=== PATIENT | male | born 1950 | race Caucasian/White ===

== ENCOUNTER 2021-11-04 10:34 | Emergency (ER) | payer OTHER, SELFPAY ==
--- NOTE | ~2021-11-04 | XR_ITS ---
EXAMINATION: XR hip RT min 2V DATE: 11/04/2021 10:54 INDICATION: Nontraumatic right hip pain TECHNIQUE: Anteroposterior view of the pelvis and anteroposterior, frog leg and cross-table lateral v iews of the right hip were obtained. COMPARISON: None. FINDINGS: Alignment is normal. No fracture or suggest avascular necrosis. There is decreased femoral head neck offset which can predispose towards cam-type femoral acetabular impingement. Right hip joint and sacr oiliac joint spaces appear normal. Mild osteoarthritis with mild nonuniform joint space narrowing at the left sacroiliac joint. Soft tissues are unremarkable. IMPRESSION: 1. No acute osseous abnormality or evident osteoarthritis at the right hip. Reviewed, dictated and finalized at location . 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
[2021-11-04 10:34] VITALS: BP 172/66; PULSE 71; RESP 18; TEMP 37.1; O2SAT 95
--- NOTE | 2021-11-04 12:33 | PC.NURSE ---
Patient walked without difficulty around room, EDP notified.
--- NOTE | 2021-11-04 13:17 | ED.GENADULT ---
HPI - General Adult General Chief complaint: Extremity Injury, Lower Stated complaint: hip pain Time Seen by Provider: 11/04/21 10:46 Source: patient Mode of arrival: EMS Limitations: no limitations History of Present Illness HPI narrative: Patient is a 71-year-old male with chief complaint of lateral aspect of right hip that began prior to arrival while mopping. Patient reports the pain was very intense so 911 was called. Patient was given 4 mg of morphine via EMS and states the pain has now subsided. Patient is able to move the extremity. Patient denies any falls or direct injuries. Patient denies prior surgeries to the hip. Patient denies any chest pain, shortness of breath, fever, chills or any other symptoms. Related Data Allergies Allergy/AdvReac Type Severity Reaction Status Date / Time codeine AdvReac Muscle Pain Verified 11/04/21 10:42 Review of Systems Review of Systems: CONSTITUTIONAL: Denies fever, chills, or sweats. EYES: Denies visual changes, redness, or discharge. ENT: Denies rhinorrhea, congestion, sore throat, or otalgia. CARDIOVASCULAR: Denies chest pain, palpitations, or edema. RESPIRATORY: Denies cough or dyspnea. GASTROINTESTINAL: Denies abdominal pain, nausea, vomiting, or diarrhea. GENITOURINARY: Denies dysuria or hematuria. SKIN: Denies rash or itching. MUSCULOSKELETAL: Reports right hip pain denies back pain, joint pain, or myalgia. NEUROLOGIC: Denies headache, numbness, dizziness, or weakness. PSYCHIATRIC: Denies anxiety or depression. Exam Narrative: GENERAL: Well-appearing, well-nourished, and in no acute distress. HEAD: Normocephalic, atraumatic. EYES: PERRLA and EOMI. NECK: Supple. No adenopathy or masses. CHEST: Clear to auscultation. No respiratory distress. No wheezes rales or rhonchi HEART: Regular rate and rhythm. EXTREMITIES: Tightness to right IT band. Patient able to move extremity. No calf pain, tenderness or swelling. No groin pain.No edema. SKIN: Warm, dry, no rash. NEURO: No focal deficits. Alert and oriented x3. PSYCH: Normal mood and affect. Course Vital Signs Vital signs: Vital Signs Temperature 98.7 F 11/04/21 10:34 Pulse Rate 71 11/04/21 10:34 Respiratory Rate 18 11/04/21 10:34 Blood Pressure 172/66 H 11/04/21 10:34 Pulse Oximetry 95 11/04/21 10:34 Temperature 98.7 F 11/04/21 10:34 Pulse Rate 71 11/04/21 10:34 Respiratory Rate 18 11/04/21 10:34 Blood Pressure 172/66 H 11/04/21 10:34 Pulse Oximetry 95 11/04/21 10:34 Medical Decision Making MDM Narrative Medical decision making narrative: No fractures noted. Patient able to ambulate. Patient reports discomfort has resolved. Patient instructed to follow-up primary care for reevaluation. Patient strict return to emergency department if he has any emergent symptoms. Differential Diagnosis Differential Diagnosis: Fracture, sprain, strain, spasm Vital Signs Vital Signs: Vital Signs Temperature 98.7 F 11/04/21 10:34 Pulse Rate 71 11/04/21 10:34 Respiratory Rate 18 11/04/21 10:34 Blood Pressure 172/66 H 11/04/21 10:34 Pulse Oximetry 95 11/04/21 10:34 Temperature 98.7 F 11/04/21 10:34 Pulse Rate 71 11/04/21 10:34 Respiratory Rate 18 11/04/21 10:34 Blood Pressure 172/66 H 11/04/21 10:34 Pulse Oximetry 95 11/04/21 10:34 Imaging Data Radiologist's impression: ITS Impressions Hip X-Ray 11/04/21 11:00 IMPRESSION: 1. No acute osseous abnormality or evident osteoarthritis at the right hip. Discharge Plan Discharge Clinical Impression: Acute pain of right hip Patient Disposition: Home, Self-Care Condition: Improved Instructions: Antibiotic Form Additional Instructions: Follow-up with your primary care provider. Return to emergency department if you have any emergent symptoms. Follow-up/Referrals: Brando Osborn MD [Primary Care Provider] - Time of Disposition: 13:22
[2021-11-04 13:32] VITALS: BP 155/78; PULSE 68; RESP 17; O2SAT 100
== END 2021-11-04 13:33 | disposition home or self-care (01) ==
PROVIDERS: Emergency Provider Emergency Medicine; PCP Family Medicine Adolescent Medicine
DX: M25.551 Pain in right hip (principal)
CPT/HCPCS: 73502; 99283

== ENCOUNTER 2021-12-04 09:52 | Emergency (ER) | payer OTHER, SELFPAY ==
--- NOTE | ~2021-12-04 | XR_ITS ---
EXAMINATION: XR chest 2V DATE: 12/04/2021 10:30 INDICATION: Cough. Decreased breath sounds. TECHNIQUE: Frontal and lateral views of the chest were obtained on 3 radiographs. COMPARISON: None. FINDINGS: The chest demonstrates clear lungs without pneumonia, pleural effusion, or pneumothorax. Th e heart size is normal. There is mild chronic anterior wedging of 2 midthoracic vertebral bodies. IMPRESSION: 1. No acute cardiopulmonary disease. Reviewed, dictated and finalized at location A. R HELPER
--- NOTE | 2021-12-04 10:02 | ED.URI ---
HPI - URI/Sore Throat General Chief Complaint: Upper Respiratory Infection Stated Complaint: cough/fever/congestion Time Seen by Provider: 12/04/21 10:12 Source: patient and RN notes reviewed Mode of arrival: ambulatory Limitations: no limitations History of Present Illness HPI Narrative: 71-year-old male presents with concern for cough, runny nose, nasal congestion, sore throat that started 4 days ago. He is concerned for Covid. He denies taking any tkwu-zwg-lddwngy medication. He denies shortness of breath, body aches, chills, fever, sweats. He reports history of high blood pressure, did not take his blood pressure medication. MD elicited complaint: cough and sore throat Related Data Home Medications Medication Instructions Recorded Confirmed amlodipine 5 mg tablet 5 mg PO DAILY 11/19/21 12/04/21 aspirin 81 mg tablet,delayed 81 mg PO DAILY 11/19/21 12/04/21 release fenofibrate 160 mg tablet 160 mg PO DAILY 11/19/21 12/04/21 lisinopril 40 mg tablet 40 mg PO DAILY 11/19/21 12/04/21 lorazepam 1 mg tablet 1 mg PO BID PRN 11/19/21 12/04/21 melatonin 10 mg tablet 10 mg PO QHS 11/19/21 12/04/21 metoprolol tartrate 100 mg tablet 100 mg PO BID 11/19/21 12/04/21 naproxen sodium 220 mg capsule 220 mg PO BID 11/19/21 12/04/21 omeprazole 20 mg capsule,delayed 20 mg PO DAILY 11/19/21 12/04/21 release Allergies Allergy/AdvReac Type Severity Reaction Status Date / Time codeine AdvReac Muscle Pain Verified 12/04/21 10:03 Review of Systems Review of Systems: CONSTITUTIONAL: Denies malaise, chills, sweats, or fever. EYES: Denies visual changes, redness, or discharge. ENT: Reports rhinorrhea, congestion, and sore throat. Reports sinus pain, otalgia CARDIOVASCULAR: Denies chest pain, palpitations, or edema. RESPIRATORY: Reports cough. Denies dyspnea. GASTROINTESTINAL: Denies abdominal pain, nausea, vomiting, diarrhea SKIN: Denies rash or itching. MUSCULOSKELETAL: Denies myalgia. NEUROLOGIC: Denies headache. All systems reviewed & are unremarkable except as noted in HPI and below PMFSH Past Medical History Medical History (Updated 12/04/21 @ 10:36 by Candace Wyatt NP) Erectile dysfunction GERD (gastroesophageal reflux disease) Hypertension Obesity (BMI 30-39.9) Prediabetes Pure hyperglyceridemia Comments At time of signature, agree with nursing past medical, surgical, social and family history. There is no relevant family history pertinent to the presenting complaint Exam Narrative: GENERAL: Well-appearing, well-nourished, and in no acute distress. HEAD: Normocephalic EYES: PERRLA, conjunctivae clear ENT: Nares clear, clear discharge. Mucous membranes moist. TM pearly hurt with dull light reflex bilaterally; no tragal tenderness. Oropharynx erythematous without lesions. Tonsils not enlarged and without exudate, no drooling, no hoarseness, no trismus, uvula midline. NECK: Supple. No lymphadenopathy CHEST: Breath sounds diminished throughout. No wheezing, rhonchi, rales, or stridor. No respiratory distress, speaks in full sentences. HEART: Regular rate and rhythm. No murmur heard. SKIN: Warm, dry, no rash. NEURO: Alert and oriented x3. PSYCH: Normal mood and affect Course Course Emergency Course: Patient is aware of diagnosis, understands and agrees to treatment plan. Anticipatory guidance given. Patient agrees to follow-up as directed and is aware of reasons to seek care at the emergency department. Portions of this record may have been created with voice recognition software Level of Care: Express Care Visit Vital Signs Vital signs: Reviewed. Patient has history of hypertension MDM - URI/Sore Throat MDM Narrative Medical decision making narrative: Differential diagnosis considered: Farah virus, strep pharyngitis, allergic rhinitis, upper respiratory tract infection, sinusitis, rhinosinusitis, nasopharyngitis. viral pharyngitis, otitis media, otitis externa, pneumonia, bronchitis, viral cough syndrome, viral syn
[2021-12-04 10:04] VITALS: BP 193/60; PULSE 77; RESP 18; TEMP 36.7; O2SAT 96
[2021-12-04 10:28] VITALS: BP 193/60; PULSE 77; RESP 18; TEMP 36.7; O2SAT 96
== END 2021-12-04 10:40 | disposition home or self-care (01) ==
PROVIDERS: Emergency Provider Nurse Practitioner
DX: U07.1 COVID-19 (principal); K21.9 Gastro-esophageal reflux disease without esophagitis; I10 Essential (primary) hypertension; R73.03 Prediabetes; E78.1 Pure hyperglyceridemia; E66.9 Obesity, unspecified; Z68.34 Body mass index [BMI] 34.0-34.9, adult
CPT/HCPCS: 71046; 87426; 99213; C9803; G0463

== ENCOUNTER 2022-09-30 08:52 | Outpatient (CLI) | payer OTHER, SELFPAY ==
--- NOTE | ~2022-09-30 | US_ITS ---
EXAMINATION: US aorta [facility] scrn DATE: 09/30/2022 10:01 INSULATION HOSEMAN INDICATION: Family history of ischemic heart disease TECHNIQUE: Grayscale, color Doppler, and pulsed Doppler images of the aorta and common iliac arteries were obtained. COMPARISON: None. FINDINGS: The proximal aorta measures 1.7 cm greatest sagittal dimension. The mid aorta measures 1.7 cm greates t sagittal dimension. The distal aorta measures 2.1 cm greatest sagittal dimension. The right common internal iliac artery measures 12 mm. The left common iliac artery measures 9 mm. IMPRESSION: 1. Normal caliber aorta without aneurysm. Reviewed, dictated and finalized at location B. LATION HOSEMAN
== END 2022-09-30 08:53 | disposition home or self-care (01) ==
PROVIDERS: PCP Family Medicine Adolescent Medicine; Visit Provider Physician Assistant
DX: Z13.6 Encounter for screening for cardiovascular disorders (principal); Z82.49 Family history of ischemic heart disease and other diseases of the circulatory system
CPT/HCPCS: 76706

== ENCOUNTER 2025-09-30 08:33 | Emergency (ER) | payer OTHER, SELFPAY ==
--- OUTSIDE RECORDS SUMMARY | 2025-09-30 08:39 | XMS_ITS | Clinical Summary ---
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 Gender Identity Not on file Sexual Orientation Not on file Plan of Treatment Health Maintenance Due Date Last Done Comments Hepatitis C Virus (HCV) Screening 1950 TdaP Immunization 1950 Cologuard 1996 Colonoscopy 1996 Colorectal Cancer Screening 1996 Immunochemical Fecal Occult Blood 1996 Pneumococcal Immunization (5 0+ years) (1 of 1 - PCV) 2001 Zoster Immunization (1 of 2) 2001 Influenza Immunization (#1) 2025 08/17/2020 SARS-COV-2 Immunization (3 - season) 2025 01/27/2021, 01/04/2021 Respiratory Syncytial Virus (RSV) Immunization (Adult) (1 - 1-dose 75+ series) 2026 Hepatitis B Immunization Aged Out No longer eligible based on patient's age to complete this topic Human Papillomavirus (HPV) Immunization Aged Out No longer eligible b ased on patient's age to complete this topic Meningococcal Immunization (ACWY) Aged Out No longer eligible b ased on patient's age to complete this topic Rotavirus Immunization Aged Out No lo nger eligible based on patient's age to complete this topic
[2025-09-30 08:50] VITALS: BP 166/50; PULSE 57; RESP 18; TEMP 36.5; O2SAT 97
--- NOTE | 2025-09-30 09:10 | ED.ABDPAIN ---
HPI - Abdominal Pain General Chief Complaint: Abdominal Pain Stated Complaint: stomach pain patient presents the [facility] Care with complaints of left lower abdominal pain that has been constant for the last several days and does have intermittent increase in pain. denies any alleviating or aggravating symptoms. Medication or remedies attempted for symptoms. Denies any history of abdominal problems, no history of colonoscopy. Noted he has had normal bowel movements. Denies fever, chills, body aches, headache, Urinary symptoms, testicular pain, testicular swelling, flank pain, back pain, blood in urine, blood in stool, or dizziness. Related Data Home Medications ?Medication ?Instructions ?Recorded ?Confirmed ?Last Taken ?Type aspirin 81 mg tablet,delayed 81 mg PO DAILY 11/19/21 09/19/25 Unknown History release (Adult Low Dose Aspirin) omeprazole 20 mg capsule,delayed 20 mg PO DAILY 11/19/21 09/19/25 Unknown History release Allergies Allergy/AdvReac Type Severity Reaction Status Date / Time codeine AdvReac Muscle Pain Verified 09/30/25 08:54 Review of Systems Constitutional: Constitutional: Reports as per HPI, Denies chills, Denies fatigue, Denies fever(s) and Denies weakness Eyes: Eyes: Reports no additional eye complaints Cardiovascular: Cardiovascular: Reports no additional cardiovascular complaints Respiratory: Respiratory: Reports no additional respiratory complaints Gastrointestinal: Gastrointestinal: Reports as per HPI, Reports abdominal pain, Denies bloating, Denies constipation, Denies heartburn, Denies diarrhea, Denies nausea and Denies vomiting Genitourinary: Genitourinary: Reports as per HPI, Denies oliguria, Denies dysuria, Denies testicular pain, Denies urinary frequency and Denies urinary incontinence Musculoskeletal: Musculoskeletal: Reports as per HPI, Denies back pain and Denies myalgias Integumentary/Breasts: Skin/Breast: Reports as per HPI, Denies erythema and Denies rash Neurologic: Reports as per HPI, Denies vertigo, Denies dizziness, Denies syncope, Denies headache(s) and Denies weakness Psychiatric: Psychiatric: Reports no additional psychiatric complaints Endocrine: Endocrine: Reports no additional endocrine complaints Hematologic/Lymphatic: Hematologic/Lymphatic: Reports no additional hematologic/lymphatic complaints Allergic/Immunologic: Allergic/Immunologic: Reports no additional allergic/immunologic complaints PMFSH Past Medical History Medical History Anxiety COVID-19 Obesity (BMI 30-39.9) Prediabetes GERD (gastroesophageal reflux disease) Erectile dysfunction Surgical History Surgical History History of tonsillectomy and adenoidectomy Family History Family History Father Aortic aneurysm Malignant neoplasm of prostate Hypertension Mother Sibling No problems noted. Social History Social History Smoking status: Former smoker Second hand tobacco smoke exposure: No Alcohol intake: current Alcohol use details: 1 beer per day Substance use: never Substance use type: does not use Do You Feel Safe in your Home?: Yes Lack of Transportation: No Lack of Food: Never True Current Housing: I Have Housing Concerned About Future Housing: No Difficulty Paying Gas/Electric Bills: No Difficulty Paying for Meds: No Currently Unemployed: No Education: High School Diploma/GED Living arrangements: with family Occupation/Education: occupation Additional occupation/education comments: [id number] Gender identity (if verbalized by the patient): Male Exam Const: General: healthy appearing and no acute distress Nutritional Appearance: well nourished Orientation/consciousness: patient oriented x3 Limitations: no limitations Resp: Effort & Inspection: normal respiratory effort Auscultation: clear to auscultation bilaterally Cardio: Rate: regular rate Rhythm: regular rhythm GI: Inspection: non-distended GI Palp: Yes Soft to palpation, Yes Tenderness to palpation present (GI) ( suprapubic, left lower quadrant, periumbilical), Yes Guarding due to palpation present (GI), No Rigid due to palpation, Yes Hernia present ventral, No Palpable mass present and No Rebound tenderness present Auscultation: normal bowel sounds : General: Yes bladder normal to palpation and Yes no CVA tenderness Back/Spine/Pelvis: Back: no CVA tenderness Skin: General skin exam: normal color Rashes: no rashes Wounds: no wounds Neuro: General: patient oriented x3 Speech: normal speech Gait exam (Neuro): Normal gait present Psych: Mental Status: mental status grossly normal Affect: normal affect Attitude: cooperative Course Course Level of Care: Express Care Visit Vital Signs Vital signs: Vital Signs Temperature 97.7 F 09/30/25 08:50 Pulse Rate 57 L 09/30/25 08:50 Respiratory Rate 18 09/30/25 08:50 Blood Pressure 166/50 H 09/30/25 08:50 Pulse Oximetry 97 09/30/25 08:50 Oxygen Delivery Room Air 09/30/25 08:50 Temperature 97.7 F 09/30/25 08:50 Pulse Rate 57 L 09/30/25 08:50 Respiratory Rate 18 09/30/25 08:50 Blood Pressure 166/50 H 09/30/25 08:50 Pulse Oximetry 97 09/30/25 08:50 Oxygen Delivery Room Air 09/30/25 08:50 Transfer Transfered to: [facility] Transportation: Other (Private vehicle) Transfer rationale: abdominal pain concern for diverticulosis /diverticulitis. Also noted positive Cologuard 3 years ago with no follow-up colonoscopy Accepting physician: Dr Lizama Transfer comments: report called to physician in emergency room. MDM - Abdominal Pain MDM Narrative Medical decision making narrative: Given patient's overall symptoms and concern for potential diverticulitis versus abscess versus colon mass patient should be evaluated in the emergency room with CT scan and lab work report called to [facility] given to provider patient to be transferred by private vehicle Differential Diagnosis Differential diagnosis: Likely abdominal pain, constipation, diverticulitis, small bowel obstruction and other ( abdominal mass) Medical Records Attestation: I reviewed the patient's medical records. Discharge Plan Discharge Clinical Impression: Abdominal pain Patient Disposition: Acute Care Hospital Condition: Guarded Prognosis Patient Language: Icelandic Prescriptions: No Action aspirin [Adult Low Dose Aspirin] 81 mg tablet,delayed release (DR/EC) 81 mg PO DAILY omeprazole 20 mg capsule,delayed release(DR/EC) 20 mg PO DAILY amlodipine 5 mg tablet 5 mg PO DAILY Qty: 90 3RF atorvastatin 10 mg tablet 10 mg PO DAILY Qty: 90 3RF lorazepam 1 mg tablet 1 mg PO BID PRN (Reason: Anxiety) Qty: 60 5RF metoprolol tartrate 100 mg tablet 100 mg PO BID Qty: 180 3RF lisinopril 40 mg tablet 40 mg PO DAILY Qty: 90 2RF fenofibrate 160 mg tablet 160 mg PO DAILY Qty: 90 3RF Follow-up/Referrals: Brando Osborn MD [Primary Care Provider, Family Practice] Time of Disposition: 09:18
== END 2025-09-30 09:13 | disposition short-term general hospital (02) ==
PROVIDERS: Emergency Provider Nurse Practitioner Family; PCP Family Medicine Adolescent Medicine
DX: R10.30 Lower abdominal pain, unspecified (principal); R10.32 Left lower quadrant pain; R10.33 Periumbilical pain; Z87.891 Personal history of nicotine dependence; K21.9 Gastro-esophageal reflux disease without esophagitis; R73.03 Prediabetes; E66.9 Obesity, unspecified; Z68.34 Body mass index [BMI] 34.0-34.9, adult; F41.9 Anxiety disorder, unspecified; Z86.16 Personal history of COVID-19; Z79.82 Long term (current) use of aspirin
CPT/HCPCS: 99212; G0463

== ENCOUNTER 2025-09-30 09:32 | Emergency (ER) | payer OTHER, SELFPAY ==
--- NOTE | ~2025-09-30 | CT_ITS ---
CT abdomen pelvis w con Clinical History: LLQ pain . Comparison: None Technique: Axial images lung bases to symphysis pubis IV contrast information not listed in PACS Coronal, sagittal reformats CT images acquired with automatic exposure control for dose reduction DLP: 902 mGy-cm Findings: Lung bases: Clear. Visualized heart and pericardium: Unremarkable. Liver: Enlarged. Steatosis. Probable cirrhosis. Gallbladder: Unremarkable. Spleen: Unremarkable. Pancreas: Unremarkable. Adrenal glands: Unremarkable. Kidneys: Right kidney- No hydronephrosis. No renal stones. Left kidney- No hydronephrosis. No renal stones. Distal esophagus/stomach: Unremarkable. Small bowel loops: Normal caliber and wall thickness. Colon: Diverticula. Perisigmoid focal fatty inflammation, no abscess or free air. Smaller additional focus. Normal caliber and wall thickness. Normal RLQ appendix. Nodes: No enlarged nodes. Peritoneum: No ascites. No free air. Urinary bladder: Unremarkable. Prostate: Unremarkable. Bones: No acute bony abnormality. Soft tissues: Unremarkable. Aorta: No aneurysm or dissection. Atherosclerotic disease. IVC: Unremarkable. Main portal vein/SMV/splenic vein: Patent. IMPRESSION: 1. Appearance suggests left lower quadrant epiploic appendagitis. Diverticulitis considered less likely. 2. Additional findings as above. Reviewed, dictated and finalized at location R. [facility] [employer]NAGER IMPRESSION: 1. Appearance suggests left lower quadrant epiploic appendagitis. Diverticulit is considered less likely. 2. Additional findings as above.
--- OUTSIDE RECORDS SUMMARY | 2025-09-30 09:35 | XMS_ITS | Clinical Summary ---
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
[2025-09-30 09:38] VITALS: PULSE 63; RESP 14; TEMP 36.6; O2SAT 97
[2025-09-30 09:58] LABS: Add Urine Microscopic? NO; Appearance Urine Clear (Clear); Glucose Urine UA Negative (Negative); Hematocrit 46.0 % (42.0-52.0); Hemoglobin 14.2 g/dL (14.0-18.0); Immature Granulocyte Percent A 0.4 % (0-0.5); Leukocyte Esterase Ur Negative LEU/UL (Negative); Lymphocytes Absolute Auto 3.38 K/mm3 (0.9-3.2); Mean Corpuscular HGB Conc 30.9 g/dl (32-36); Mean Corpuscular Hemoglobin 28.3 pg (26-34); Mean Corpuscular Volume 91.6 fl (80-100); Nitrate Urine Negative (Negative); Nucleated Red Blood Cells Absolute Auto 0.000 K/mm3 (0.0-0.012); Nucleated Red Blood Cells Perc 0.0 % (0.0-0.2); Platelet Count Result 269 k/mm3 (150-375); Red Blood Count 5.02 M/mm3 (4.6-6.20); Specific Grav Ur 1.020 (1.001-1.035); White Blood Count 11.3 K/mm3 (4.5-10.0)
[2025-09-30 10:18] LABS: Alanine Aminotransferase 24 U/L (6-50); Albumin Level 4.2 g/dL (3.5-5.1); Alkaline Phosphatase 65 U/L (38-126); Anion Gap 8 mmol/L (4-12); Aspartate Amino Transferase 28 U/L (17-59); Bilirubin,Total 0.8 mg/dL (0.2-1.3); Blood Urea Nitrogen 23 mg/dL (9-20); Calcium 9.3 mg/dL (8.4-10.2); Carbon Dioxide 29 mmol/L (22-30); Chloride 102 mmol/L (98-107); Estimated CRCL calculation 46 ml/min; Estimated Glomerular Filt Rate 47; Glucose 98 mg/dL (65-110); Lipase 95 U/L (23-300); Potassium 4.0 mmol/L (3.4-5.0); Sodium 139 mmol/L (137-145); Total Protein 7.3 g/dL (6.3-8.2)
--- NOTE | 2025-09-30 11:34 | ED.ABDPAIN ---
HPI - Abdominal Pain General Chief Complaint: Abdominal Pain Stated Complaint: abd pain Time Seen by Provider: 09/30/25 09:46 History of Present Illness HPI narrative: Patient is a 74-year-old male who presents ER with abdominal pain. Worsening over last 3 days. Left lower quadrant. No radiation. Worse with physical movements. He has not taken any pain medication. No diarrhea or constipation. History of positive Cologuard in 2021 but has not had any colonoscopy or further evaluation. No weight loss. No other complaints. Related Data Home Medications ?Medication ?Instructions ?Recorded ?Confirmed ?Last Taken ?Type aspirin 81 mg tablet,delayed 81 mg PO DAILY 11/19/21 09/19/25 Unknown History release (Adult Low Dose Aspirin) omeprazole 20 mg capsule,delayed 20 mg PO DAILY 11/19/21 09/19/25 Unknown History release Allergies Allergy/AdvReac Type Severity Reaction Status Date / Time codeine AdvReac Muscle Pain Verified 09/30/25 09:46 Review of Systems Review of Systems: All systems reviewed & are unremarkable except as noted in HPI and below Constitutional: Constitutional: Reports no additional constitutional complaints ENT: Reports system reviewed and no additional complaints, except as documented Cardiovascular: Cardiovascular: Reports no additional cardiovascular complaints Respiratory: Respiratory: Reports no additional respiratory complaints Gastrointestinal: Gastrointestinal: Reports no additional gastrointestinal complaints [facility] Past Medical History Medical History Anxiety COVID-19 Obesity (BMI 30-39.9) Prediabetes GERD (gastroesophageal reflux disease) Erectile dysfunction Surgical History Surgical History History of tonsillectomy and adenoidectomy Family History Family History Father Aortic aneurysm Malignant neoplasm of prostate Hypertension Mother Sibling No problems noted. Social History Social History Smoking status: Former smoker Second hand tobacco smoke exposure: No Alcohol intake: current Alcohol use details: 1 beer per day Substance use: never Substance use type: does not use Do You Feel Safe in your Home?: Yes Lack of Transportation: No Lack of Food: Never True Current Housing: I Have Housing Concerned About Future Housing: No Difficulty Paying Gas/Electric Bills: No Difficulty Paying for Meds: No Currently Unemployed: No Education: High School Diploma/GED Living arrangements: with family Occupation/Education: occupation Additional occupation/education comments: [employer] Gender identity (if verbalized by the patient): Male Exam Narrative: GENERAL: Well-appearing, well-nourished, and in no acute distress. HEAD: Normocephalic, atraumatic. ENT: Mucous membranes moist. NECK: Supple. CHEST: Clear to auscultation. No respiratory distress. HEART: Regular rate and rhythm. Normal peripheral pulses. ABDOMEN: Soft, TTP LLQ with mild guarding, nondistended. EXTREMITIES: Normal range of motion. No edema. SKIN: Warm, dry, no rash. NEURO: Alert and oriented x3. PSYCH: Normal mood and affect. Course Course Emergency Course: Patient resting comfortably. Informed of lab and imaging results. Appropriate for discharge home. Educated that CT scan does not screen for cancer and he should get an outpatient colonoscopy. Verbalized understanding. Vital Signs Vital signs: Vital Signs Temperature 97.8 F 09/30/25 09:38 Pulse Rate 63 09/30/25 09:38 Respiratory Rate 14 09/30/25 09:38 Pulse Oximetry 97 09/30/25 09:38 Oxygen Delivery Room Air 09/30/25 09:38 Temperature 97.8 F 09/30/25 09:38 Pulse Rate 63 09/30/25 09:38 Respiratory Rate 14 09/30/25 09:38 Pulse Oximetry 97 09/30/25 09:38 Oxygen Delivery Room Air 09/30/25 09:38 MDM - Abdominal Pain Differential Diagnosis Differential diagnosis: Likely abdominal pain, acute appendicitis, calculus of kidney, diverticulitis, gastroenteritis and small bowel obstruction Lab Data Attestation: I reviewed the patient's lab results. 09/30/25 09:50 09/30/25 09:50 Labs: Lab Results 09/30/25 Range/Units 09:50 WBC 11.3 H (4.5-10.0) K/mm3 RBC 5.02 (4.6-6.20) M/mm3 Hgb 14.2 (14.0-18.0) g/dL Hct 46.0 (42.0-52.0) % MCV 91.6 (80-100) fl MCH 28.3 (26-34) pg MCHC 30.9 L (32-36) g/dl RDW 13.8 (11.5-14.5) % Plt Count 269 (150-375) k/mm3 MPV 9.8 (7.4-10.4) fl Immature Gran % (Auto) 0.4 (0-0.5) % Neut % (Auto) 58.7 (45.5-73.1) % Lymph % (Auto) 30.0 (18.3-44.2) % [place] % (Auto) 8.5 (2.6-8.5) % Eos % (Auto) 2.0 (0-4.4) % Baso % (Auto) 0.4 (0.2-1.2) % Lymph # (Auto) 3.38 H (0.9-3.2) K/mm3 [place] # (Auto) 1.0 H (0.1-0.6) K/mm3 Eos # (Auto) 0.2 (0-0.3) K/mm3 Baso # (Auto) 0.1 (0.0-0.1) K/mm3 Abs Immat Gran (auto) 0.05 H (0.00-0.031) K/mm3 Absolute Neuts (auto) 6.6 (1.3-6.7) K/mm3 Absolute Nucleated RBC 0.000 (0.0-0.012) K/mm3 Nucleated RBC % 0.0 (0.0-0.2) % Sodium 139 (137-145) mmol/L Potassium 4.0 (3.4-5.0) mmol/L Chloride 102 (98-107) mmol/L Carbon Dioxide 29 (22-30) mmol/L Anion Gap 8 (4-12) mmol/L BUN 23 H (9-20) mg/dL Creatinine 1.48 H (0.7-1.3) mg/dL Estim Creat Clear Calc 46 ml/min Estimated GFR 47 L (59 - ) Glucose 98 (65-110) mg/dL Calcium 9.3 (8.4-10.2) mg/dL Total Bilirubin 0.8 (0.2-1.3) mg/dL AST 28 (17-59) U/L ALT 24 (6-50) U/L Alkaline Phosphatase 65 (38-126) U/L Total Protein 7.3 (6.3-8.2) g/dL Albumin 4.2 (3.5-5.1) g/dL Lipase 95 (23-300) U/L Urine Color Yellow (Yellow) Urine Appearance Clear (Clear) Urine pH 6.5 (5.0-9.0) Ur Specific Bieber 1.020 (1.001-1.035) Urine Protein Negative (Negative) mg/dL Urine Glucose (UA) Negative (Negative) mg/dL Urine Ketones Negative (Negative) mg/dL Ur Blood (Man) Negative (Negative) Urine Nitrate Negative (Negative) Urine Bilirubin Negative (Negative) Urine Urobilinogen 1.0 (<2.0) mg/dL Leukocyte Esterase Rfl Negative (Negative) RODGER/UL Imaging Data Radiologist's impression: ITS Impressions Abdomen/Pelvis CT 09/30/25 11:06 IMPRESSION: 1. Appearance suggests left lower quadrant epiploic appendagitis. Diverticulitis considered less likely. 2. Additional findings as above. Discharge Plan Discharge Clinical Impression: Epiploic appendagitis Patient Disposition: Home Condition: Stable Instructions: Epiploic Appendagitis (ED) Additional Instructions: Return to the emergency department if you develop severe abdominal pain, severe nausea and vomiting to the point where you are unable to keep down fluids, if you develop chest pain or difficulty breathing, blood in your stool, dizziness or fainting, or if you develop any other new or concerning symptoms as these could be signs of more serious medical illness. Try to stay well hydrated. As reminder, you had a positive Cologuard in the past and you need to obtain a colonoscopy. A CT scan does not indicate whether or not you could have colon cancer. Patient Language: Nigerian Prescriptions: New ibuprofen 600 mg tablet 600 mg PO TID Qty: 14 0RF No Action aspirin [Adult Low Dose Aspirin] 81 mg tablet,delayed release (DR/EC) 81 mg PO DAILY omeprazole 20 mg capsule,delayed release(DR/EC) 20 mg PO DAILY amlodipine 5 mg tablet 5 mg PO DAILY Qty: 90 3RF atorvastatin 10 mg tablet 10 mg PO DAILY Qty: 90 3RF lorazepam 1 mg tablet 1 mg PO BID PRN (Reason: Anxiety) Qty: 60 5RF metoprolol tartrate 100 mg tablet 100 mg PO BID Qty: 180 3RF lisinopril 40 mg tablet 40 mg PO DAILY Qty: 90 2RF fenofibrate 160 mg tablet 160 mg PO DAILY Qty: 90 3RF Follow-up/Referrals: Brando Osborn MD [Primary Care Provider, Family Practice] - 1 Week
[2025-09-30 11:46] VITALS: BP 155/72; PULSE 56; RESP 16; O2SAT 97
== END 2025-09-30 11:48 | disposition home or self-care (01) ==
PROVIDERS: Emergency Provider Emergency Medicine; PCP Family Medicine Adolescent Medicine
DX: K63.89 Other specified diseases of intestine (principal); R73.03 Prediabetes; E66.9 Obesity, unspecified; Z68.33 Body mass index [BMI] 33.0-33.9, adult; K21.9 Gastro-esophageal reflux disease without esophagitis; F41.9 Anxiety disorder, unspecified; Z86.16 Personal history of COVID-19; Z87.891 Personal history of nicotine dependence; Z79.82 Long term (current) use of aspirin; Z79.899 Other long term (current) drug therapy
CPT/HCPCS: 36415; 74177; 80053; 81003; 83690; 85025; 99284; Q9967